=== PATIENT | female | born 1950 | race Caucasian/White ===

== ENCOUNTER 2017-05-20 09:13 | Day surgery (SDC) | payer MEDICARE, BC ==
[2017-05-18 16:45] LABS: HEMATOCRIT 46.6 % (36.0-48.0); HEMOGLOBIN 15.7 g/dL (12.0-16.0)
[2017-05-18 17:00] LABS: BUN (BLOOD UREA NITROGEN) 23 MG/DL (6-23); CALCIUM, SERUM 9.1 MG/DL (8.5-10.4); CHLORIDE, SERUM 103 MMOL/L (96-112); CO2 (CARBON DIOXIDE) 32 MMOL/L (24-34); CREATININE 0.87 MG/DL (0.55-1.02); GFR AFRICAN AMERICAN 79 ML/MIN (>=60); GFR NON AFRICAN AMERICAN 68 ML/MIN (>=60); POTASSIUM, SERUM 3.7 MMOL/L (3.5-5.3); SODIUM, SERUM 141 MMOL/L (135-148)
[2017-05-18 17:01] LABS: GLUCOSE, SERUM 89 MG/DL (60-99)
--- NOTE | ~2017-05-20 | OP ---
Record Of Operation [facility] [address] [place]. [address] NAME: KB FLOWERS : 46 STATUS : REG [facility] PAT#: [id number] AGE: 66 ADM/REG DATE : 05/20/17 MR#: [id number] REPORT SERV DATE: 05/20/17 DICTATED BY: Judah PAVON DATE: 05/20/17 REPORT STATUS : Draft TRANSCRIBED BY: PANCHITO DATE: 05/20/17 DATE OF PROCEDURE: 05/20/2017 PREOPERATIVE DIAGNOSES: 1. 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 2. Defect of the right ear antitragus, secondary to Mohs micrographic surgical excision of squamous cell carcinoma. POSTOPERATIVE DIAGNOSES: 1. 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 2. Defect of the right ear antitragus, secondary to Mohs micrographic surgical excision of squamous cell carcinoma. NAME OF OPERATION: 1. Surgical excisional preparation of right ear antitragus defect. 2. Reconstruction of right ear defect with ear lobule rotation flap. FINDINGS: 9 mm tall x 13 mm wide defect of the antitragus of the right ear involving the skin, soft tissue, and cartilage. INDICATION: This 66-year-old female, had an enlarging lesion of her right antitragus biopsied and this showed a squamous cell carcinoma, keratoacanthoma type. She was referred for consultation to coordinate Mohs surgery and my repair. She had Mohs micrographic surgical excision of the squamous cell carcinoma yesterday and now presents for reconstruction. The pros and cons, alternatives, benefits, risks, limitations, and complications (including, but not limited to, infection, scarring, deformity of the antitragus area, recurrence of tumor, imponderables) were discussed at length. She understands and wished to proceed. Proper consent was obtained. DESCRIPTION OF PROCEDURE: She was taken into the operating room and given general oral endotracheal anesthesia in the supine position. The dressing on her right ear was removed and revealed the defect. The defect measured as stated above in the findings. The ear was prepped along with the preauricular cheek, neck, and periauricular scalp with Hibiclens and saline, followed by isopropyl alcohol. Sterile drapes were applied. None of the alcohol got in to the wound. The ear was injected with 1% Xylocaine with 1:100,000 epinephrine and 0.5% Marcaine with 1:200,000 epinephrine. Five minutes elapsed for vasoconstriction. The beveled edges of the defect were excised with a 15 blade and forceps. An ear lobule a rotation flap was developed in the thickness of the ear lobule. This was incised, rotated, and secured with 6-0 Vicryl deep and 6-0 Prolene on the skin. This hcula the ear lobule up and outward, and therefore a posterior incision was made to take a tuck in the ear lobule to help flatten it down and it did so nicely. This excision measured approximately 1.5 cm long x a 5 mm wide. It was closed with 6-0 interrupted Prolene. Record Of Operation [address] [place]. [address] NAME: KB FLOWERS : 46 STATUS : REG [facility] PAT#: [id number] AGE: 66 ADM/REG DATE : 05/20/17 MR#: [id number] REPORT SERV DATE: 05/20/17 DICTATED BY: Judah PAVON DATE: 05/20/17 REPORT STATUS : Draft TRANSCRIBED BY: PANCHITO DATE: 05/20/17 The wounds were cleansed with hydrogen peroxide and dried. Mastisol and paper tape were applied in multiple layers. She was awakened, extubated, and taken recovery room in good condition having tolerated procedure well. Estimated blood loss was 1 mL. Home going instructions included prescriptions written for hydrocodone, cephalexin, and Zofran. Recheck in the office in 13 days. She is to leave the tape dry and intact. GENEVA/PANCHITO Judah Pavon M.D. / [id number] CC: Karey Santamaria M.D.
[~2017-05-20 09:13] MED LIST: CALTRA600D PO; FLONASE NAS; HYDROCHLOROT12.5 MG PO; LEVOXYL100 MCG PO; LEXAPRO10 PO; LOTE40 PO; MAG OXIDE250 MG PO; POTASSIUM GLUCO99 MG PO; PREM.3B PO; VITAMIN D1000 UNI1 PO; ZETIA PO
== END 2017-05-20 23:59 | disposition home or self-care (01) ==
LOC: SDC 09:13
PROVIDERS: Specialist
PROC: 0HX2XZZ Transfer Right Ear Skin, External Approach (ICD-10-PCS; principal; 2017-05-20 11:00)
DX: C44.222 Squamous cell carcinoma of skin of right ear and external auricular canal (principal); I10 Essential (primary) hypertension; I34.1 Nonrheumatic mitral (valve) prolapse; E78.00 Pure hypercholesterolemia, unspecified; E03.9 Hypothyroidism, unspecified; L71.9 Rosacea, unspecified; Z88.2 Allergy status to sulfonamides; Z90.710 Acquired absence of both cervix and uterus; Z90.49 Acquired absence of other specified parts of digestive tract; Z90.722 Acquired absence of ovaries, bilateral; Z90.89 Acquired absence of other organs; Z79.899 Other long term (current) drug therapy; Z98.890 Other specified postprocedural states
CPT/HCPCS: 80048; 85014; 85018; 93005; A9270-GY; J0690; J2405; J2710; J3010